=== PATIENT | male | born 1950 | race Caucasian/White ===

== ENCOUNTER 2020-06-25 10:02 | Emergency (ER) | payer OTHER ==
[2020-06-25 12:12] LABS: RED BLOOD COUNT 3.78 M/UL (4.20-5.50); WHITE BLOOD COUNT 9.5 K/UL (4.5-11.0)
[2020-06-25 12:34] LABS: BUN/CREATININE RATIO 24 (0-10)
[2020-06-25] MEDS ORDERED: ZOFRAN4 MG PO (16:30)
[2020-06-25] MEDS ORDERED: DOXYCYCLINE HY100 M2 PO (16:30)
[2020-06-25] MEDS ORDERED: TESSALON PERLE100 MG PO (16:30)
== END 2020-06-25 16:50 | disposition home or self-care (01) ==
LOC: EDBD 10:02 → ER1 10:02
DX: U07.1 COVID-19 (principal); E86.0 Dehydration; E87.1 Hypo-osmolality and hyponatremia; E11.9 Type 2 diabetes mellitus without complications; I10 Essential (primary) hypertension; Z79.84 Long term (current) use of oral hypoglycemic drugs; Z86.19 Personal history of other infectious and parasitic diseases
CPT/HCPCS: 71045; 80053; 81001; 82436; 82570; 83935; 84133; 84300; 85025; 93005; 96374; 99285; J2405